=== PATIENT | male | born 1955 | race Caucasian/White ===

== ENCOUNTER → 2017-02-14 | Outpatient (CLI) | payer OTHER ==
[~2017-02-14] MED LIST: ALBU8.5H3 INH; CARI350T PO; CEPH-368 PO; FLUT1DIS3 INH; OXYC-229 PO
== END | disposition home or self-care (01) ==
LOC: RAD 08:37
PROVIDERS: ATTEND Specialist
DX: K76.0 Fatty (change of) liver, not elsewhere classified (principal); K76.89 Other specified diseases of liver; Z90.49 Acquired absence of other specified parts of digestive tract
CPT/HCPCS: 76700

== ENCOUNTER → 2017-02-21 | Outpatient (CLI) | payer OTHER | LOC: RAD 14:39 | PROVIDERS: ATTEND Internal Medicine Critical Care Medicine | DX: Z02.9 Encounter for administrative examinations, unspecified (principal) ==

== ENCOUNTER 2017-05-29 13:23 | Emergency (ER) | payer OTHER ==
[~2017-05-29] VITALS: Ht 180.3 cm; Wt 91.0 kg
[2017-05-29] MEDS ORDERED: OXYcodone/APAP 5/325MG TABLET ONE (13:59)
[2017-05-29] MEDS ORDERED: DIAZEPAM 5 MG TABLET ONE (13:59)
[2017-05-29] MEDS ORDERED: KETOROLAC 30 MG/1 ML ONE (13:59)
[2017-05-29] MEDS ORDERED: DIAZEPAM 5 MG TABLET PO ONE (14:00)
[2017-05-29] MEDS ORDERED: OXYcodone/APAP 5/325MG TABLET PO ONE (14:00)
[2017-05-29] MEDS ORDERED: KETOROLAC 30 MG/1 ML IM ONE (14:00)
[2017-05-29] MEDS ORDERED: HYDROmorphone 1 MG/ML, 1ML ONE (16:20)
[2017-05-29] MEDS ORDERED: HYDROmorphone 1 MG/ML, 1ML IM ONE (16:30)
[2017-05-29 16:48] VITALS: BP 158/80
== END 2017-05-29 16:49 | disposition home or self-care (01) ==
LOC: ED 14:01
DX: M54.5 Low back pain (principal); M54.6 Pain in thoracic spine; J45.909 Unspecified asthma, uncomplicated; Z90.49 Acquired absence of other specified parts of digestive tract
CPT/HCPCS: 72072; 72114; 96372; 99284; J1170; J1885

== ENCOUNTER → 2017-08-25 | Outpatient (CLI) | payer OTHER ==
[~2017-08-25] MED LIST changes: -ALBU8.5H3 INH; +ALBU8.5H8 INH; -OXYC-229 PO; +OXYC-307 PO
[2017-08-25 11:06] LABS: HEMATOCRIT 47.7 % (39.2-51.8); HEMOGLOBIN 16.4 g/dL (13.7-18.0); WHITE BLOOD COUNT 5.9 x10^3/uL (3.4-10)
[2017-08-25 11:22] LABS: ASPARTATE AMINO TRANSFERASE 63 U/L (15-37); BLOOD UREA NITROGEN 14 mg/dL (7-18)
[2017-08-28 11:30] LABS: BLOOD UREA NITROGEN 10 mg/dL (7-18)
== END | disposition home or self-care (01) ==
LOC: STAR 09:51
PROVIDERS: ATTEND Neurological Surgery
DX: Z01.818 Encounter for other preprocedural examination (principal); M47.814 Spondylosis without myelopathy or radiculopathy, thoracic region; M48.061 Spinal stenosis, lumbar region without neurogenic claudication; M43.17 Spondylolisthesis, lumbosacral region; M12.88 Other specific arthropathies, not elsewhere classified, other specified site; M25.78 Osteophyte, vertebrae; J44.9 Chronic obstructive pulmonary disease, unspecified; R79.1 Abnormal coagulation profile; Z98.890 Other specified postprocedural states; Z98.1 Arthrodesis status
CPT/HCPCS: 36415; 72072; 80048; 80053; 83036; 85025; 85610; 85730; 93005

== ENCOUNTER 2017-09-19 10:08 | Inpatient (IN) | payer OTHER ==
[~2017-09-19] VITALS: Ht 180.3 cm; Wt 91.2 kg
[~2017-09-19 10:08] MED LIST changes: +METH750T87 PO; +MORP-52 PO; +SENN8.8S4 PO
[2017-09-19] MEDS ORDERED: HYDROmorphone 2 MG/ML, 1ML ONE ×2 (10:23→11:05)
[2017-09-19] MEDS ORDERED: ONDANSETRON 2MG/ML, 2ML ONE (10:23)
[2017-09-19] MEDS ORDERED: SODIUM CHLORIDE 0.9% 1,000 ML IV ONE (10:27)
[2017-09-19] MEDS ORDERED: SODIUM CHLORIDE FLUSH 10ML SYR IVF ONE (10:30)
[2017-09-19] MEDS ORDERED: ONDANSETRON 2MG/ML, 2ML IVPush ONE (10:30)
[2017-09-19] MEDS: HYDROmorphone 1 MG/ML, 1ML IVPush PRN ×4 (10:32→14:41)
[2017-09-19] MEDS ORDERED: LORazepam 2 MG/ML, 1ML ONE ×2 (10:38→11:29)
[2017-09-19 10:51] LABS: HEMATOCRIT 41.2 % (39.2-51.8); HEMOGLOBIN 13.8 g/dL (13.7-18.0); WHITE BLOOD COUNT 5.9 x10^3/uL (3.4-10)
[2017-09-19 10:55] LABS: ASPARTATE AMINO TRANSFERASE 18 U/L (15-37); BLOOD UREA NITROGEN 8 mg/dL (7-18)
[2017-09-19] MEDS ORDERED: LORazepam 2 MG/ML, 1ML IVPush ONE ×2 (11:00→11:30)
[2017-09-19] MEDS ORDERED: SODIUM CHLORIDE FLUSH 10ML SYR IVF PRN (14:30)
[2017-09-19] MEDS ORDERED: HYDROmorphone 1 MG/ML, 1ML ONE ×2 (14:38→15:22)
[2017-09-19] MEDS ORDERED: OMNIPAQUE 350 MG/ML, 100ML BOTTLE ONE (15:32)
[2017-09-19] MEDS ORDERED: SODIUM CHLORIDE 0.9% 1,000 ML IV SCH (17:25)
[2017-09-19] MEDS ORDERED: ONDANSETRON 2MG/ML, 2ML IVPush PRN (17:30)
[2017-09-19] MEDS ORDERED: hydrALAzine 20 MG/ML, 1ML IVPush PRN (17:30)
[2017-09-19] MEDS: METHOCARBAMOL 500 MG TABLET PO SCH ×2 (17:30→20:49)
[2017-09-19] MEDS: SIMETHICONE 125 MG CHEW TAB PO SCH ×2 (18:00→20:52)
[2017-09-19] MEDS ORDERED: GADOBUTROL 10 MMOL/10 ML PFS ONE (18:11)
[2017-09-19 20:07] VITALS: BP 160/75
[2017-09-19] MEDS: PANTOPROZOLE 40MG TABLET PO SCH (20:49)
[2017-09-19] MEDS ORDERED: OXYcodone/APAP 5/325MG TABLET PO ONE (22:00)
[2017-09-20 03:16] VITALS: BP 168/75
[2017-09-20 05:19] LABS: HEMATOCRIT 37.3 % (39.2-51.8); HEMOGLOBIN 12.7 g/dL (13.7-18.0); WHITE BLOOD COUNT 4.5 x10^3/uL (3.4-10)
[2017-09-20 05:21] LABS: BLOOD UREA NITROGEN 8 mg/dL (7-18)
[2017-09-20 05:24] LABS: ASPARTATE AMINO TRANSFERASE 15 U/L (15-37)
[2017-09-20] MEDS: SIMETHICONE 125 MG CHEW TAB PO SCH ×2 (07:00→11:00)
[2017-09-20] MEDS ORDERED: POTASSIUM CHLORIDE 20 MEQ TAB.ER.PRT PO ONE (07:30)
[2017-09-20] MEDS ORDERED: FAMO20TA37 PO (07:56)
[2017-09-20] MEDS ORDERED: OXYcodone/APAP 10/325MG TABLET PO PRN (08:00)
[2017-09-20 08:07] VITALS: BP 169/75
[2017-09-20 08:08] VITALS: BP 180/74
[2017-09-20 08:09] VITALS: BP 165/76
[2017-09-20] MEDS: PANTOPROZOLE 40MG TABLET PO SCH (10:16)
[2017-09-20] MEDS: METHOCARBAMOL 500 MG TABLET PO SCH ×2 (10:17→11:00)
== END 2017-09-20 12:00 | disposition home or self-care (01) | DRG 551 ==
LOC: ED 11:24 → EDIP 14:03 → 4WST 17:46
PROVIDERS: ADMIT Internal Medicine; ATTEND Internal Medicine
DX: M48.061 Spinal stenosis, lumbar region without neurogenic claudication (principal); E43 Unspecified severe protein-calorie malnutrition; M54.9 Dorsalgia, unspecified; W18.39XA Other fall on same level, initial encounter; E87.6 Hypokalemia; I95.1 Orthostatic hypotension; R10.9 Unspecified abdominal pain; E86.9 Volume depletion, unspecified; G89.29 Other chronic pain; Z80.3 Family history of malignant neoplasm of breast; Z98.1 Arthrodesis status; Z90.49 Acquired absence of other specified parts of digestive tract; Z68.20 Body mass index [BMI] 20.0-20.9, adult; Y93.89 Activity, other specified; Y92.098 Other place in other non-institutional residence as the place of occurrence of the external cause; Y99.8 Other external cause status; M51.26 Other intervertebral disc displacement, lumbar region
CPT/HCPCS: 36415; 72129; 72158; 74022; 80053; 81003; 82962; 83690; 83735; 84100; 85025; 96361; 96374; 96375; 96376; A9585; J1170; J2270; J2405; Q9967; J2060; J7030

== ENCOUNTER 2019-08-22 05:48 | Observation (INO) | payer MEDICARE, OTHER ==
[~2019-08-22] VITALS: Ht 180.3 cm; Wt 97.0 kg
[~2019-08-22 05:48] MED LIST changes: +CARV3.122 PO; +DAPA5TAB PO; +FAMO20TA37 PO; +LOSA25TA25 PO; +METF500T17 PO; +NORCO PO; -SENN8.8S4 PO; +SENN8.8S5 PO
[2019-08-22] MEDS ORDERED: LACTATED RINGERS 1,000 ML IV SCH (06:12)
[2019-08-22 06:16] VITALS: BP 138/82
[2019-08-22] MEDS ORDERED: BUPIVACAINE/PF 0.5% ONE (07:03)
[2019-08-22] MEDS ORDERED: THROMBIN 5,000 UNIT VIAL TP ONE (07:04)
[2019-08-22] MEDS ORDERED: BACITRACIN 50,000 UNIT ONE (07:04)
[2019-08-22] MEDS ORDERED: EPINEPHRINE 1 MG/ML, 1ML ONE (07:04)
[2019-08-22] MEDS ORDERED: MIDAZOLAM 1 MG/ML, 2ML ONE (07:17)
[2019-08-22] MEDS ORDERED: FENTANYL PF 250 MCG/5ML ONE (07:19)
[2019-08-22] MEDS ORDERED: PROPOFOL 50 ML ONE ×2 (07:22→08:37)
[2019-08-22] MEDS ORDERED: DEXAMETHASONE 4 MG/ML, 1ML ONE (07:57)
[2019-08-22] MEDS ORDERED: ONDANSETRON 2MG/ML, 2ML ONE (07:57)
[2019-08-22] MEDS ORDERED: PROPOFOL 10 MG/ML, 20ML ONE (07:57)
[2019-08-22] MEDS ORDERED: ROCURONIUM 10MG/ML,5ML ONE (07:57)
[2019-08-22] MEDS ORDERED: WATER-INJECTION,STERILE 10 ML IV ONE (07:57)
[2019-08-22] MEDS ORDERED: CEFAZOLIN 1,000 MG ONE (07:57)
[2019-08-22] MEDS ORDERED: LIDOCAINE-MPF 2% ,5ML ONE (07:57)
[2019-08-22] MEDS ORDERED: MEPERIDINE/PF 100 MG/ML ONE (08:00)
[2019-08-22] MEDS ORDERED: morphine SULFATE/PF 1 MG/ML, 10ML ONE (08:35)
[2019-08-22] MEDS ORDERED: methylPREDNISolone *ACETATE* 40 MG/ML ONE (08:35)
[2019-08-22] MEDS ORDERED: SUGAMMADEX 200 MG/2 ML IVPush ONE (08:57)
[2019-08-22] MEDS ORDERED: METHOCARBAMOL 1,000 MG in DEXTROSE 5% 100 ML IV PRN (09:00)
[2019-08-22] MEDS ORDERED: PROMETHAZINE 25 MG/ML, 1ML IV PRN (09:00)
[2019-08-22] MEDS ORDERED: ALBUTEROL SULFATE 2.5 MG/3 ML NPPB PRN (09:00)
[2019-08-22] MEDS ORDERED: OXYcodone 5 MG/5 ML ORAL.SOL UDC PO PRN (09:00)
[2019-08-22] MEDS ORDERED: ACETAMINOPHEN 325 MG TABLET PO PRN (09:00)
[2019-08-22] MEDS ORDERED: HALOPERIDOL 5 MG/ML IV PRN (09:00)
[2019-08-22] MEDS ORDERED: MEPERIDINE/PF 25MG/ML,1ML IVPush PRN (09:00)
[2019-08-22] MEDS ORDERED: hydrALAzine 20 MG/ML, 1ML IV PRN ×2 (09:00→19:30)
[2019-08-22] MEDS ORDERED: FENTANYL PF 100 MCG/2ML ONE (09:15)
[2019-08-22] MEDS: FENTANYL PF 100 MCG/2ML IV PRN ×2 (09:20→09:35)
[2019-08-22] MEDS ORDERED: SENNA/DOCUSATE TABLET PO PRN (09:30)
[2019-08-22] MEDS: NS + 20MEQ KCL 1,000 ML IV SCH ×2 (09:30→15:25)
[2019-08-22] MEDS ORDERED: MAGNESIUM HYDROXIDE 8%, 30ML UDC PO PRN (09:30)
[2019-08-22] MEDS ORDERED: BISACODYL 10 MG SUPP PR PRN (09:30)
[2019-08-22] MEDS: KETOROLAC 30 MG/1 ML IVPush SCH ×2 (09:30→17:14)
[2019-08-22] MEDS ORDERED: PHARMACY MAY ADJ FOR RENAL FX MC PRN (09:30)
[2019-08-22] MEDS ORDERED: ONDANSETRON 2MG/ML, 2ML IVPush PRN (09:30)
[2019-08-22] MEDS ORDERED: HYDROmorphone 2 MG/ML, 1ML ONE (09:42)
[2019-08-22] MEDS ORDERED: OXYcodone 5 MG/5 ML ORAL.SOL UDC ONE (09:43)
[2019-08-22] MEDS: HYDROmorphone 2 MG/ML, 1ML IVPush PRN ×6 (09:47→20:42)
[2019-08-22] MEDS ORDERED: DIAZEPAM 5 MG/ML, 2ML IV ONE (10:00)
[2019-08-22] MEDS ORDERED: DIAZEPAM 5 MG/ML, 2ML ONE (10:01)
[2019-08-22] MEDS ORDERED: KETOROLAC 30 MG/1 ML ONE (10:15)
[2019-08-22] MEDS ORDERED: KETAMINE 10 MG/ML, 20ML ONE (10:42)
[2019-08-22] MEDS: HYDROcodone/APAP 5/325 TABLET PO PRN ×2 (12:02→19:27)
[2019-08-22 13:30] VITALS: BP 143/85
[2019-08-22 18:50] VITALS: BP 183/100
[2019-08-22] MEDS ORDERED: LABETALOL 5 MG/ML SYR. (IV ONLY) IVPush PRN (19:30)
[2019-08-22] MEDS: CARVEDILOL 3.125 MG TABLET PO SCH (20:41)
[2019-08-22] MEDS: LOSARTAN 25MG TABLET PO SCH (20:41)
[2019-08-22 23:46] VITALS: BP 155/77
[2019-08-23] MEDS: HYDROcodone/APAP 5/325 TABLET PO PRN ×2 (00:15→06:04)
[2019-08-23] MEDS: HYDROmorphone 2 MG/ML, 1ML IVPush PRN ×2 (01:28→09:16)
[2019-08-23] MEDS: KETOROLAC 30 MG/1 ML IVPush SCH ×3 (01:36→16:58)
[2019-08-23] MEDS: NS + 20MEQ KCL 1,000 ML IV SCH (01:36)
[2019-08-23 04:00] VITALS: BP 148/80
[2019-08-23] MEDS: CARVEDILOL 3.125 MG TABLET PO SCH ×2 (06:03→17:00)
[2019-08-23 06:04] VITALS: BP 130/78
[2019-08-23 08:42] VITALS: BP 121/72
[2019-08-23] MEDS ORDERED: ACETAMINOPHEN 500 MG TABLET PO SCH (11:00)
[2019-08-23] MEDS ORDERED: HYDROmorphone 1 MG/ML, 1ML VIAL ONE (11:52)
[2019-08-23] MEDS: METHOCARBAMOL 1,000 MG in DEXTROSE 5% 100 ML IV SCH ×2 (11:54→19:48)
[2019-08-23] MEDS ORDERED: HYDROmorphone 2 MG/ML, 1ML IV ONE (12:00)
[2019-08-23] MEDS: MAGNESIUM HYDROXIDE 8%, 30ML UDC PO SCH (12:03)
[2019-08-23] MEDS: INSULIN LISPRO 100 UNITS/ML, PEN SQ-INSULIN SCH ×3 (12:05→21:00)
[2019-08-23 12:07] VITALS: BP 128/75
[2019-08-23] MEDS ORDERED: HYDROmorphone 2MG TABLET PO PRN (12:15)
[2019-08-23 12:47] LABS: ANION GAP 6 mmol/L (5-15); CALCIUM 7.7 mg/dL (8.5-10.1); CHLORIDE 110 mmol/L (98-107)
[2019-08-23 12:49] LABS: CREATININE 0.71 mg/dL (0.7-1.3)
[2019-08-23] MEDS: ACETAMINOPHEN 500 MG TABLET PO SCH ×2 (14:25→19:48)
[2019-08-23] MEDS: HEPARIN 5,000 UNITS/ML, 1ML SQ SCH ×2 (14:26→22:53)
[2019-08-23] MEDS: OXYcodone IR 5MG TABLET PO PRN ×2 (16:59→18:19)
[2019-08-23 19:58] VITALS: BP 134/75
[2019-08-23] MEDS ORDERED: FARXIGA 5 MG PO SCH (21:00)
[2019-08-23] MEDS: SODIUM CHLORIDE FLUSH 10ML SYR IVF SCH (21:00)
[2019-08-23] MEDS: metFORMIN 500 MG TABLET PO SCH (21:02)
[2019-08-23] MEDS: LOSARTAN 25MG TABLET PO SCH (21:02)
[2019-08-24 01:22] VITALS: BP 148/83
[2019-08-24] MEDS: KETOROLAC 30 MG/1 ML IVPush SCH (01:46)
[2019-08-24] MEDS: ACETAMINOPHEN 500 MG TABLET PO SCH ×2 (01:48→08:12)
[2019-08-24] MEDS ORDERED: OXYC5CAP2 PO ×2 (03:59→04:01)
[2019-08-24] MEDS ORDERED: CYCL5TAB PO (04:02)
[2019-08-24] MEDS: METHOCARBAMOL 1,000 MG in DEXTROSE 5% 100 ML IV SCH (04:17)
[2019-08-24] MEDS: HEPARIN 5,000 UNITS/ML, 1ML SQ SCH (06:19)
[2019-08-24] MEDS: CARVEDILOL 3.125 MG TABLET PO SCH (06:20)
[2019-08-24] MEDS: OXYcodone IR 5MG TABLET PO PRN (06:22)
[2019-08-24 07:49] VITALS: BP 160/79
[2019-08-24] MEDS ORDERED: metFORMIN 500 MG TABLET PO SCH (08:00)
[2019-08-24] MEDS: INSULIN LISPRO 100 UNITS/ML, PEN SQ-INSULIN SCH ×2 (08:05→11:00)
[2019-08-24] MEDS: metFORMIN 500 MG TABLET PO SCH (08:12)
[2019-08-24] MEDS: LOSARTAN 25MG TABLET PO SCH (08:12)
[2019-08-24] MEDS: SODIUM CHLORIDE FLUSH 10ML SYR IVF SCH (08:12)
[2019-08-24] MEDS: MAGNESIUM HYDROXIDE 8%, 30ML UDC PO SCH (08:12)
[2019-08-24] MEDS ORDERED: METHOCARBAMOL 750 MG TABLET PO PRN (09:00)
[2019-08-24] MEDS ORDERED: DOCU-131 PO (09:51)
[2019-08-24 09:56] VITALS: BP 119/69
== END 2019-08-24 11:10 | disposition home or self-care (01) ==
LOC: OUT 05:48 → ORIP 09:05 → 4NE 11:32 → DCLOUNGE 08-24 10:45
PROVIDERS: ADMIT Neurological Surgery; ATTEND Neurological Surgery
DX: M48.061 Spinal stenosis, lumbar region without neurogenic claudication (principal); M54.5 Low back pain; I97.3 Postprocedural hypertension; E11.9 Type 2 diabetes mellitus without complications
CPT/HCPCS: 63047; 72100; 80048; 82962; 96365; 96366; 96372; 96375; 96376; 97162; 97166; G0378; J0171; J0690; J1030; J1100; J1170; J1644; J1885; J2175; J2250; J2274; J2405; J2704; J2800; J3010; J3360; J3480; J3490; J7120; S0020